=== PATIENT | female | born 2000 | race Caucasian/White ===

== ENCOUNTER 2020-10-04 15:27 | Emergency (ER) | payer OTHER ==
--- NOTE | 2020-10-04 16:14 | RAD ---
EXAM: Portable chest PROVIDED CLINICAL HISTORY: Difficulty breathing COMPARISON: None FINDINGS: Cardiac and mediastinal silhouette is within normal limits. No focal consolidation, pleural fluid or pneumothorax evident. IMPRESSION: No evidence for an acute cardiopulmonary process.
[2020-10-05 02:24] LABS: SARS-CoV-2 MS2 Positive; SARS-CoV-2 N Gene Negative; SARS-CoV-2 S Gene Negative; SARS-CoV-2 by NAA Not Detected (NotDetected); SARS-CoV-2 orf1ab Negative
== END 2020-10-04 17:00 | disposition home or self-care (01) ==
LOC: ERS 15:27
DX: R07.89 Other chest pain (principal)
CPT/HCPCS: 71045; 87635; 93005; U0003